=== PATIENT | female | born 1965 | race Caucasian/White ===

== ENCOUNTER 2016-10-08 17:10 | Emergency (ER) | payer BC ==
[2016-10-08 17:30] VITALS: BP 162/99
[2016-10-08] MEDS ORDERED: Haloperidol Lactate 5 MG/ML SDV IM ONE (17:45)
[2016-10-08] MEDS ORDERED: Ketorolac 30 MG/ML SDV IM ONE (17:45)
[2016-10-08] MEDS ORDERED: Ondansetron 4 MG Tab.DIS PO ONE (17:45)
[2016-10-08] MEDS ORDERED: diphenhydrAMINE 50 MG/ML SDV IM ONE (17:45)
--- NOTE | 2016-10-08 17:58 | EDM.PDOC ---
ED HPI GENERAL MEDICAL PROBLEM - General Chief Complaint: Headache Stated Complaint: MIGRAINE Time Seen by Provider: 10/08/16 17:36 Source of Information: Reports: Patient History Limitations: Reports: No Limitations - History of Present Illness INITIAL COMMENTS - FREE TEXT/NARRATIVE: Patient is a 51 y/o female who presents to the E.D. complaining of left sided headache behind the left eye with photosensitivity. States the headache started today while in a meeting. Has been under a lot of stress lately at work. States she is almost positive this is the culprit. States pattern is different then usual. States normally headache is located to the right side of her head with light sensitivity and nausea. States recent onset of headache is located to the left side of her head. In addition she has been awoken in the middle of the night with headaches. States this is abnormal but is not to concerned. States she has been trying to lose weight and has noted decrease in weight by 15 lbs since Feb 14. States normally the headache is resolved with taking excedrin but states she has not been able to take it due to being excessively busy. 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 Denies fever, chills, vomiting, n/t, gait disturbances, worst headache of her life, stiff neck, recent head trauma, or any additional concerns. Onset: Gradual Duration: Constant, Waxing/Waning Location: Reports: Head. Denies: Neck, Back Quality: Reports: Ache, Throbbing Severity: Moderate Improves with: Reports: None Worsens with: Reports: None Context: Reports: Other (stress) Associated Symptoms: Reports: No Other Symptoms, Nausea/Vomiting (nauseated) Treatments [employer]: Reports: Other (see below) (none stated) Left Headache Pain Score (Numeric/FACES): 10 - Related Data Allergies Allergy/AdvReac Type Severity Reaction Status Date / Time NSAIDS (Non-Steroidal Allergy Severe unknown Verified 06/15/16 14:54 Anti-Inflamma Sulfa (Sulfonamide Allergy Severe unknown Verified 06/15/16 14:54 Antibiotics) amoxicillin trihydrate Allergy Intermediate unknown Verified 06/15/16 14:54 [From Augmentin] droperidol [From Inapsine] Allergy Intermediate unknown Verified 06/15/16 14:54 fluconazole [From Diflucan] Allergy Intermediate unknown Verified 06/15/16 14:54 potassium clavulanate Allergy Intermediate unknown Verified 06/15/16 14:54 [From Augmentin] Home Meds: Home Meds Calcium Carbonate/Vitamin D3 [Caltrate 600 + D Soft Chew Tab] 1 each PO DAILY [History] Cetirizine [ZyrTEC] 10 mg PO DAILY PRN 11/10/13 [History] Cholecalciferol (Vitamin D3) [Vitamin D3] 5,000 unit PO DAILY 11/10/13 [History] Cyanocobalamin/FA/Pyridoxine [Folbic Tablet] 1 tab PO DAILY 11/10/13 [History] Hydrochlorothiazide 12.5 mg PO DAILY 11/10/13 [History] LORazepam [Ativan] 1 mg PO BEDTIME 11/10/13 [History] Omeprazole 40 mg PO BID PRN 11/10/13 [History] Potassium Chloride [Klor-Con 10] 10 meq PO DAILY 11/10/13 [History] Solifenacin [Vesicare] 10 mg PO DAILY 11/10/13 [History] Triamcinolone Acetonide [Nasacort AQ [place]] 2 spray DANIAL DAILY 11/10/13 [History] Multivitamin [Multivitamins] 1 each PO DAILY 06/15/16 [History] Nortriptyline HCl [Pamelor] 50 mg PO BEDTIME 06/15/16 [History] Past Medical History - Past Surgical History HEENT Surgical History: Reports: Naso-Sinus Surgery GI Surgical History: Reports: Bariatric Procedure, Cholecystectomy Neurological Surgical History: Reports: Spinal Fusion Social & Family History - Tobacco Use Smoking Status *Q: Never Smoker - Caffeine Use Caffeine Use: Reports: Soda - Recreational Drug Use Recreational Drug Use: No ED ROS GENERAL - Review of Systems Review Of Systems: See Below Constitutional: Denies: Fever, Chills, Malaise, Weakness, Fatigue, Decreased Appetite HEENT: Denies: Vision Change Respiratory: Denies: Shortness of Breath, Cough, Sputum Cardiovascular: Denies: Chest Pain, Dyspnea on Exertion GI/Abdominal: Reports: Nausea. Denies: Abdominal Pain, Constipation, Diarrhea, Vomiting : Reports: No Symptoms Musculoskeletal: Denies: Neck Pain, Back Pain Neurological: Reports: Headache. Denies: Dizziness, Numbness, Syncope, Tingling , Difficulty Walking, Weakness - Physical Exam Exam: See Below Exam Limited By: No Limitations General Appearance: Alert, WD/WN, No Apparent Distress Eye Exam: Bilateral Eye: EOMI, Nystagmus (none present on examination), PERRL Ears: Normal External Exam, Hearing Grossly Normal Nose: Normal Inspection Throat/Mouth: Normal Inspection, Normal Oropharynx, Normal Voice, No Airway Compromise Head Exam: Atraumatic, Normocephalic Neck: Normal Inspection, Supple, Non-Tender, Full Range of Motion. No: Lymphadenopathy (L), Lymphadenopathy (R) Respiratory/Chest: No Respiratory Distress, Lungs Clear, Normal Breath Sounds, No Accessory Muscle Use, Chest Non-Tender Cardiovascular: Normal Peripheral Pulses, Regular Rate, Rhythm, No Murmur GI/Abdominal: Normal Bowel Sounds, Soft, Non-Tender, No Organomegaly, No Distention Neuro Exam (Abbreviated): Alert, Oriented, CN II-XII Intact, Normal Cognition, Normal Gait, No Motor/Sensory Deficits, Other (Cerebellar fx intact. Strenght5/ 5 upper/lower extremities. ) Back Exam: Normal Inspection Extremities: Normal Inspection, Non-Tender, No Pedal Edema, Normal Capillary Refill Psychiatric: Normal Affect, Normal Mood Skin Exam: Warm, Dry, Intact, Normal Color Course - Vital Signs Last Recorded V/S: Last Vital Signs Temp 98.7 F 10/08/16 17:28 Pulse 81 10/08/16 17:28 Resp 20 10/08/16 17:28 BP 162/99 H 10/08/16 17:28 Pulse Ox 99 10/08/16 17:28 - Orders/Labs/Meds Meds: Medications Discontinued Medications Generic Name Dose Route Start Last Admin Trade Name Roque PRN Reason Stop Dose Admin Diphenhydramine HCl 50 mg 10/08/16 17:45 10/08/16 18:07 Benadryl IM 10/08/16 17:46 50 mg ONETIME ONE Administration Haloperidol Lactate 5 mg 10/08/16 17:45 10/08/16 18:05 Haldol IM 10/08/16 17:46 5 mg ONETIME ONE Administration Ketorolac Tromethamine 15 mg 10/08/16 17:45 10/08/16 18:02 Toradol IM 10/08/16 17:46 15 mg ONETIME ONE Administration Ondansetron HCl 4 mg 10/08/16 17:45 10/08/16 18:02 Zofran Odt PO 10/08/16 17:46 4 mg ONETIME ONE Administration - Re-Assessments/Exams Free Text/Narrative Re-Assessment/Exam: Patient states headache is caused by increased stress that has been present at work. States she is almost positive this is the culprit. States pattern is different then usual. States normally headache is located to the right side of her head with light sensitivity and nausea. States recent onset of headache is located to the left side of her head. In addition she has been awoken in the middle of the night with headaches. States this is abnormal but is not to concerned. States she has been trying to lose weight and has noted decrease in weight by 15 lbs since Feb 14. States normally the headache is resolved with taking excedrin but states she has not been able to take it due to being excessively busy. I offered to obtain CT of the head to evaluate for any abnormalities. She has opted to receive medications only and will see PCP to have further studies if required. Ordered haldol 5mg IM, benadryl 50mg IM, zofran 4mg ODT, and toradol 15mg IM. She has history of gastric sleeve and normally does not take nsaids. States she has had toradol in the past with no issues. 10/08/16 18:34 Reassessment, Headache is improving. Patient is ready to be discharged home. Son will be driving her home. Departure - Departure Time of Disposition: 18:35 Disposition: Home, Self-Care 01 Condition: good Clinical Impression: Migraine - Discharge Information Referrals: Aleyda Weber MD [Primary Care Provider] - Forms: ED Department Discharge Additional Instructions: No driving this evening since receiving a sedative medications. Suggest going home finding a dark room with no distractions allowing undisturbed rest. See your PCP this coming week if headaches continue. Return to the E.D. if you develop fever/chills, vomiting, vision changes, stiff neck, or any additional neuro symptoms. Take your excedrin as usual for migraines.
== END 2016-10-08 18:48 | disposition home or self-care (01) ==
LOC: JD.ED 17:10
DX: G43.909 Migraine, unspecified, not intractable, without status migrainosus (principal); Z98.84 Bariatric surgery status; Z90.49 Acquired absence of other specified parts of digestive tract; Z98.1 Arthrodesis status; Z79.899 Other long term (current) drug therapy; Z88.1 Allergy status to other antibiotic agents; Z88.2 Allergy status to sulfonamides; Z88.8 Allergy status to other drugs, medicaments and biological substances
CPT/HCPCS: 96372; 99283; A9270; J1200; J1630; J1885

== ENCOUNTER 2017-05-08 19:53 | Emergency (ER) | payer BC ==
--- NOTE | 2017-05-08 20:02 | EDM.PDOC ---
ED HPI GENERAL MEDICAL PROBLEM - General Chief Complaint: Cardiovascular Problem Stated Complaint: HIGH BLOOD PRESSURE Time Seen by Provider: 05/08/17 20:02 - History of Present Illness INITIAL COMMENTS - FREE TEXT/NARRATIVE: 3-year-old female presents emergency room blood pressure problems. Patient's had elevations in her blood pressure over the last month or month and a half. They have concerns about contributing medications she started on estradiol 10 mg about 01 April but her blood pressure was originally noted be going up at that point. She has been started on raloxifene has had this increased from 37.5 mg to 75 mg a day seems to be doing okay blood pressure is gone up some it's unclear if this is been contributing to this patient was started on Zanaflex about a week ago. Patient's been taking lorazepam at night and his stopped doing this. She's had systolic blood pressures in the 160s and 170s lately. Her only antihypertensive medication is hydrochlorothiazide 25 mg daily. She has not had a tremor or elevated temperatures she does have daily headaches this is not new for her. She does not have anything that sounds like clonus. Headache Pain Score (Numeric/FACES): 3 - Related Data Allergies Allergy/AdvReac Type Severity Reaction Status Date / Time NSAIDS (Non-Steroidal Allergy Severe unknown Verified 06/15/16 14:54 Anti-Inflamma Sulfa (Sulfonamide Allergy Severe unknown Verified 06/15/16 14:54 Antibiotics) amoxicillin trihydrate Allergy Intermediate unknown Verified 06/15/16 14:54 [From Augmentin] droperidol [From Inapsine] Allergy Intermediate unknown Verified 06/15/16 14:54 fluconazole [From Diflucan] Allergy Intermediate unknown Verified 06/15/16 14:54 potassium clavulanate Allergy Intermediate unknown Verified 06/15/16 14:54 [From Augmentin] Home Meds: Home Meds Calcium Carbonate/Vitamin D3 [Caltrate 600 + D Soft Chew Tab] 1 each PO DAILY [History] Cetirizine [ZyrTEC] 10 mg PO DAILY PRN 11/10/13 [History] Cholecalciferol (Vitamin D3) [Vitamin D3] 5,000 unit PO DAILY 11/10/13 [History] Cyanocobalamin/FA/Pyridoxine [Folbic Tablet] 1 tab PO DAILY 11/10/13 [History] Hydrochlorothiazide 12.5 mg PO DAILY 11/10/13 [History] LORazepam [Ativan] 1 mg PO BEDTIME 11/10/13 [History] Omeprazole 40 mg PO BID PRN 11/10/13 [History] Potassium Chloride [Klor-Con 10] 10 meq PO DAILY 11/10/13 [History] Solifenacin [Vesicare] 10 mg PO DAILY 11/10/13 [History] Triamcinolone Acetonide [Nasacort AQ [place]] 2 spray DANIAL DAILY 11/10/13 [History] Multivitamin [Multivitamins] 1 each PO DAILY 06/15/16 [History] Nortriptyline HCl [Pamelor] 50 mg PO BEDTIME 06/15/16 [History] amLODIPine [Norvasc] 2.5 mg PO DAILY #15 tablet 05/08/17 [Rx] Past Medical History - Past Surgical History HEENT Surgical History: Reports: Naso-Sinus Surgery GI Surgical History: Reports: Bariatric Procedure, Cholecystectomy Neurological Surgical History: Reports: Spinal Fusion Social & Family History - Tobacco Use Smoking Status *Q: Never Smoker - Caffeine Use Caffeine Use: Reports: Soda - Recreational Drug Use Recreational Drug Use: No ED ROS GENERAL - Review of Systems Review Of Systems: See Below Constitutional: Reports: No Symptoms HEENT: Reports: No Symptoms Respiratory: Reports: No Symptoms Cardiovascular: Reports: Blood Pressure Problem. Denies: No Symptoms Endocrine: Denies: No Symptoms GI/Abdominal: Denies: No Symptoms : Denies: No Symptoms Musculoskeletal: Denies: No Symptoms Skin: Denies: No Symptoms Neurological: Denies: No Symptoms ED EXAM, GENERAL - Physical Exam Exam: See Below Exam Limited By: No Limitations General Appearance: Alert, No Apparent Distress Head: Atraumatic Neck: Normal Inspection, Supple, Non-Tender, Full Range of Motion Respiratory/Chest: No Respiratory Distress, Lungs Clear, Normal Breath Sounds, No Accessory Muscle Use, Chest Non-Tender Cardiovascular: Normal Peripheral Pulses, Regular Rate, Rhythm, No Edema, No Gallop, No JVD, No Murmur, No Rub GI/Abdominal: Normal Bowel Sounds, Soft, Non-Tender Back Exam: Normal Inspection, Full Range of Motion. No: CVA Tenderness (L), CVA Tenderness (R) Extremities: Normal Inspection, No Pedal Edema Neurological: Other (Deep tendon reflexes are normal no hyperreflexia she has no spontaneous or inducible clonus no tremor.) Skin Exam: Warm, Dry, Intact Lymphatic: No Adenopathy Course - Vital Signs Last Recorded V/S: Last Vital Signs Temp 36.2 C 05/08/17 20:02 Pulse 72 05/08/17 20:02 Resp 20 05/08/17 20:02 BP 162/101 H 05/08/17 20:51 Pulse Ox 99 05/08/17 20:02 - Orders/Labs/Meds Labs: Laboratory Tests 05/08/17 Range/Units 20:44 Sodium 143 (136-145) mEq/L Potassium 3.5 (3.5-5.1) mEq/L Chloride 108 H (98-107) mEq/L Carbon Dioxide 27 (21-32) mEq/L Anion Gap 11.5 (5-15) BUN 23 H (7-18) mg/dL Creatinine 0.9 (0.55-1.02) mg/dL Est Cr Clr Drug Dosing 70.01 mL/min Estimated GFR (MDRD) > 60 (>60) mL/min BUN/Creatinine Ratio 25.6 H (14-18) Glucose 88 (74-106) mg/dL Calcium 9.0 (8.5-10.1) mg/dL Meds: Medications Discontinued Medications Generic Name Dose Route Start Last Admin Trade Name Rudyq PRN Reason Stop Dose Admin Amlodipine Besylate 5 mg 05/08/17 20:44 05/08/17 20:51 Norvasc PO 05/08/17 20:45 5 mg ONETIME ONE Administration - Re-Assessments/Exams Free Text/Narrative Re-Assessment/Exam: 05/08/17 20:53 Patient be started on Norvasc 2.5 mg daily we are waiting a BMP at this time. Consideration was given to serotonin syndrome does not appear to be the case no tremors no akathisia is deep tendon reflexes are normal no clonus spontaneous or inducible no agitation or hyperthermia. The patient said history of reactions to certain blood pressure medications so we will go slowly with dosages. 05/08/17 21:31 Patient continues to do well systolic blood pressures in the 150s diastolic 90- 100 she's received Norvasc basic metabolic panel reviewed her calcium is normal at 9 BUNs is elevated slightly creatinine is good. Departure - Departure Time of Disposition: 21:32 Disposition: Home, Self-Care 01 Clinical Impression: Hypertension Prescriptions: amLODIPine [Norvasc] 2.5 mg PO DAILY #15 tablet Referrals: Aleyda Weber MD [Primary Care Provider] - Forms: ED Department Discharge Additional Instructions: Return to the emergency room with any questions problems worsening symptoms. Increase her daily fluid intake. Continue your hydrochlorothiazide. He was started on amlodipine this is to help lower your blood pressure 2.5 mg daily this is a fairly light dose taking 1 time daily in the evenings. You will need to follow-up with your physician to get this refilled and she may well want to increase the dose of this.
[2017-05-08] MEDS ORDERED: amLODIPine 5 MG Tab PO ONE (20:44)
[2017-05-08 20:52] VITALS: BP 162/101
== END 2017-05-08 21:46 | disposition home or self-care (01) ==
LOC: SUPCPDRO 19:53 → JD.ED 19:53
DX: I10 Essential (primary) hypertension (principal); Z88.2 Allergy status to sulfonamides; Z88.8 Allergy status to other drugs, medicaments and biological substances; Z88.1 Allergy status to other antibiotic agents; Z79.899 Other long term (current) drug therapy
CPT/HCPCS: 36415; 80048; 99283; A9270

== ENCOUNTER 2017-07-16 20:32 | Emergency (ER) | payer BC ==
[2017-07-16 20:42] VITALS: BP 139/81
[2017-07-16] MEDS ORDERED: Sodium Chloride 0.9% 10 ML Syringe FLUSH PRN (21:03)
--- NOTE | 2017-07-16 21:58 | EDM.PDOC ---
ED HPI GENERAL MEDICAL PROBLEM - General Chief Complaint: Cardiovascular Problem Stated Complaint: CHEST TIGHTNESS Time Seen by Provider: 07/16/17 20:45 Source of Information: Reports: Patient History Limitations: Reports: No Limitations - History of Present Illness INITIAL COMMENTS - FREE TEXT/NARRATIVE: Patient is a 52-year-old female who presents to the ED complaining of sinus congestion, runny nose, postnasal drip and anterior chest discomfort with congestion. Patient states symptoms came on over the past couple of days and have worsened as of recent. States hurts to take a deep breath and is breathing shallower secondary to increasing pain with taking a deep breath and also with palpation. States cough is nonproductive. Sinus congestion, runny nose symptoms are minimal. There's been no documented fever, nausea/vomiting, or really any abdominal pain. She's been having some diarrhea as of today approximate 8-10 times. Denies any recent ingestion of any bad or questionable food. Patient also has a history of bilateral leg cramps worse at night secondary to electrolyte abnormalities. She is on potassium supplementation. States approximately 2 weeks ago she drove to [place] and then came back on a plane. She is concerned over the past few nights with worsening leg cramps and onset of chest discomfort and shortness of breath that she may have a blood clot. She has no history of DVT or PE. Patient states father of a blood clot. In addition patient has a history of hypertension on amlodipine and HCTZ. She has a history of gastric bypass and thus is on vitamin B supplementation. She has a history of chronic neck and back discomfort with surgeries and is on lorazepam as needed. She has no history of cancer and does not smoke. She is on no estrogen replacement. Treatments HAT LINER: Reports: Other (see below) Other Treatments HAT LINER: 162 mg aspirin Chest Pain Score (Numeric/FACES): 7 - Related Data Allergies Allergy/AdvReac Type Severity Reaction Status Date / Time NSAIDS (Non-Steroidal Allergy Severe unknown Verified 06/15/16 14:54 Anti-Inflamma Sulfa (Sulfonamide Allergy Severe unknown Verified 06/15/16 14:54 Antibiotics) amoxicillin trihydrate Allergy Intermediate unknown Verified 06/15/16 14:54 [From Augmentin] droperidol [From Inapsine] Allergy Intermediate unknown Verified 06/15/16 14:54 fluconazole [From Diflucan] Allergy Intermediate unknown Verified 06/15/16 14:54 potassium clavulanate Allergy Intermediate unknown Verified 06/15/16 14:54 [From Augmentin] Home Meds: Home Meds Calcium Carbonate/Vitamin D3 [Caltrate 600 + D Soft Chew Tab] 1 each PO DAILY [History] Cetirizine [ZyrTEC] 10 mg PO DAILY PRN 11/10/13 [History] Cholecalciferol (Vitamin D3) [Vitamin D3] 5,000 unit PO DAILY 11/10/13 [History] Cyanocobalamin/FA/Pyridoxine [Folbic] 1 tab PO DAILY 11/10/13 [History] Hydrochlorothiazide 12.5 mg PO DAILY 11/10/13 [History] LORazepam [Ativan] 1 mg PO BEDTIME PRN 11/10/13 [History] Omeprazole 40 mg PO BID PRN 11/10/13 [History] Potassium Chloride [Klor-Con 10] 10 meq PO DAILY 11/10/13 [History] Solifenacin [Vesicare] 10 mg PO DAILY 11/10/13 [History] Triamcinolone Acetonide [Nasacort AQ [place]] 2 spray DANIAL DAILY 11/10/13 [History] Multivitamin [Multivitamins] 1 each PO DAILY 06/15/16 [History] amLODIPine [Norvasc] 2.5 mg PO DAILY #15 tablet 05/08/17 [Rx] Albuterol [Proair HFA] 1 - 2 puff IH Q4H PRN #1 inhaler 07/16/17 [Rx] Prednisone [IMW: predniSONE] 40 mg PO WITHBREAKFAST #8 tab 07/16/17 [Rx] Past Medical History Cardiovascular History: Reports: Hypertension - Past Surgical History HEENT Surgical History: Reports: Naso-Sinus Surgery GI Surgical History: Reports: Bariatric Procedure, Cholecystectomy Neurological Surgical History: Reports: Spinal Fusion Musculoskeletal Surgical History: Reports: Other (See Below) Other Musculoskeletal Surgeries/Procedures:: low back fusion Social & Family History - Tobacco Use Smoking Status *Q: Never Smoker - Caffeine Use Caffeine Use: Reports: None - Recreational Drug Use Recreational Drug Use: No ED ROS GENERAL - Review of Systems Review Of Systems: ROS reveals no pertinent complaints other than HPI. ED EXAM, GENERAL - Physical Exam Exam: See Below Exam Limited By: No Limitations General Appearance: Alert, WD/WN, No Apparent Distress Ears: Hearing Grossly Normal Nose: Normal Inspection Throat/Mouth: Normal Inspection, Normal Oropharynx, Normal Voice, No Airway Compromise Head: Atraumatic, Normocephalic Neck: Normal Inspection, Supple, Non-Tender, Full Range of Motion Respiratory/Chest: No Respiratory Distress, Lungs Clear, Normal Breath Sounds, No Accessory Muscle Use, Other (Pain to the anterior chest with palpation. ) Cardiovascular: Normal Peripheral Pulses, Regular Rate, Rhythm, No Murmur Peripheral Pulses: 4+: Radial (R) GI/Abdominal: Normal Bowel Sounds, Soft, No Organomegaly, No Distention, Tender (mild tenderness to the left upper/lower quadrant.) Back Exam: Normal Inspection Neurological: Alert, Oriented, CN II-XII Intact, Normal Cognition, No Motor/ Sensory Deficits Psychiatric: Normal Affect, Normal Mood Skin Exam: Warm, Dry, Intact, Normal Color Course - Vital Signs Last Recorded V/S: Last Vital Signs Temp 98.6 F 07/16/17 20:41 Pulse 81 07/16/17 20:41 Resp 20 07/16/17 20:41 BP 139/81 07/16/17 20:41 Pulse Ox 100 07/16/17 22:41 - Orders/Labs/Meds Orders: Active Orders 24 hr Category Date Time Status EKG Documentation Completion [RC] STAT Care 07/16/17 21:03 Active Oxygen Therapy [RC] ASDIRECTED Care 07/16/17 21:03 Active Peripheral IV Care [RC] . DIRECTED Care 07/16/17 21:03 Active RT Aerosol Therapy [RC] ASDIRECTED Care 07/16/17 22:27 Active Chest 2V [CR] Stat Exams 07/16/17 21:03 Taken Peripheral IV Insertion Adult [OM.PC] Stat Oth 07/16/17 21:03 Ordered Labs: Laboratory Tests 07/16/17 07/16/17 07/16/17 Range/Units 21:20 21:20 21:20 WBC 4.93 (3.98-10.04) K/mm3 RBC 4.10 (3.98-5.22) M/mm3 Hgb 12.5 (11.2-15.7) gm/L Hct 37.2 (34.1-44.9) % MCV 90.7 (79.4-94.8) fl MCH 30.5 (25.6-32.2) pg MCHC 33.6 (32.2-35.5) g/dl RDW Std Deviation 43.9 (36.4-46.3) fL Plt Count 209 (182-369) K/mm3 MPV 10.8 (9.4-12.3) fl Neutrophils % (Manual) 68 H (40-60) % Band Neutrophils % 1 (0-10) % Lymphocytes % (Manual) 20 (20-40) % Atypical Lymphs % 0 % Monocytes % (Manual) 10 (2-10) % Eosinophils % (Manual) 0 L (0.7-5.8) % Basophils % (Manual) 1 (0.1-1.2) Platelet Estimate Adequate RBC Morph Comment Normal PT 9.9 (8.0-13.0) SECONDS INR 0.93 APTT 25 (22-36) SECONDS D-Dimer, Quantitative 0.28 (0.19-0.59) mg/L Sodium 140 (136-145) mEq/L Potassium 3.7 (3.5-5.1) mEq/L Chloride 107 (98-107) mEq/L Carbon Dioxide 23 (21-32) mEq/L Anion Gap 13.7 (5-15) BUN 31 H (7-18) mg/dL Creatinine 1.2 H (0.55-1.02) mg/dL Est Cr Clr Drug Dosing 51.92 mL/min Estimated GFR (MDRD) 47 (>60) mL/min BUN/Creatinine Ratio 25.8 H (14-18) Glucose 93 (74-106) mg/dL Calcium 8.7 (8.5-10.1) mg/dL Total Bilirubin 0.9 (0.2-1.0) mg/dL AST 28 (15-37) U/L ALT 30 (14-59) U/L Alkaline Phosphatase 118 H (46-116) U/L Troponin I < 0.017 (0.00-0.056) ng/mL NT-Pro-B Natriuret Pep (0-125) pg/mL Total Protein 6.7 (6.4-8.2) g/dl Albumin 3.5 (3.4-5.0) g/dl Globulin 3.2 gm/dL Albumin/Globulin Ratio 1.1 (1-2) /17/18 Range/Units 21:20 WBC (3.98-10.04) K/mm3 RBC (3.98-5.22) M/mm3 Hgb (11.2-15.7) gm/L Hct (34.1-44.9) % MCV (79.4-94.8) fl MCH (25.6-32.2) pg MCHC (32.2-35.5) g/dl RDW Std Deviation (36.4-46.3) fL Plt Count (182-369) K/mm3 MPV (9.4-12.3) fl Neutrophils % (Manual) (40-60) % Band Neutrophils % (0-10) % Lymphocytes % (Manual) (20-40) % Atypical Lymphs % % Monocytes % (Manual) (2-10) % Eosinophils % (Manual) (0.7-5.8) % Basophils % (Manual) (0.1-1.2) Platelet Estimate RBC Morph Comment PT (8.0-13.0) SECONDS INR APTT (22-36) SECONDS D-Dimer, Quantitative (0.19-0.59) mg/L Sodium (136-145) mEq/L Potassium (3.5-5.1) mEq/L Chloride (98-107) mEq/L Carbon Dioxide (21-32) mEq/L Anion Gap (5-15) BUN (7-18) mg/dL Creatinine (0.55-1.02) mg/dL Est Cr Clr Drug Dosing mL/min Estimated GFR (MDRD) (>60) mL/min BUN/Creatinine Ratio (14-18) Glucose (74-106) mg/dL Calcium (8.5-10.1) mg/dL Total Bilirubin (0.2-1.0) mg/dL AST (15-37) U/L ALT (14-59) U/L Alkaline Phosphatase (46-116) U/L Troponin I (0.00-0.056) ng/mL NT-Pro-B Natriuret Pep 38 (0-125) pg/mL Total Protein (6.4-8.2) g/dl Albumin (3.4-5.0) g/dl Globulin gm/dL Albumin/Globulin Ratio (1-2) Meds: Medications Discontinued Medications Generic Name Dose Route Start Last Admin Trade Name Freq PRN Reason Stop Dose Admin Albuterol 2.5 mg 07/16/17 22:27 07/16/17 22:40 Proventil Neb Soln NEB 07/16/17 22:28 2.5 mg ONETIME ONE Administration Prednisone 40 mg 07/16/17 22:28 07/16/17 22:52 Prednisone PO 07/16/17 22:29 40 mg ONETIME ONE Administration Sodium Chloride 10 ml 07/16/17 21:03 07/16/17 21:22 Saline Flush FLUSH 10 ml ASDIRECTED PRN Administration Keep Vein Open - Re-Assessments/Exams Free Text/Narrative Re-Assessment/Exam: IV established. Initial labs and studies include CBC, chem 14, d-dimer, coag studies, troponin, chest x-ray two-view, and EKG. CBC essentially normal. D-dimer 0.28. Creatinine 1.2, troponin less than 0.17, no other concerning findings on chemistry panel. Chest x-ray reviewed with Dr. Pozo with no acute findings. Ordered albuterol neb tx x1 and prednisone 40mg po. Patient has bronchitis. No ABX required. Will discharge patient home with instructions as documented. Departure - Departure Time of Disposition: 22:36 Disposition: Home, Self-Care 01 Condition: Good Clinical Impression: Bronchitis Diarrhea Qualifiers: Diarrhea type: unspecified type Qualified Code(s): R19.7 - Diarrhea, unspecified Prescriptions: Albuterol [Proair HFA] 1 - 2 puff IH Q4H PRN #1 inhaler PRN Reason: Wheezing Prednisone [IMW: predniSONE] 40 mg PO WITHBREAKFAST #8 tab Instructions: Shortness of Breath, Adult, [id number], Metered Dose Inhaler ( No Spacer Used), Acute Bronchitis, Adult Referrals: Aleyda Weber MD [Primary Care Provider] - Forms: ED Department Discharge Additional Instructions: Take prednisone 40mg every a.m. for the next 4 days. Pro Air 1-2 puffs every 4 hrs for shortness of breath, cough, and/or wheezing. Utilize flonase 1 spray twice a day. Afrin 1 spray to each nare twice a day for no longer then 3 days for nasal secretion. Take aleve 1 tab twice a day for pain. Take tylenol 650mg every 4-6 hrs as well for pain. No fruit juices, raw fruits/vegetables, dairy products, and or spicy foods until diarrhea subsides. Followup with PCP this coming week if symptoms persist. Push the fluids. Ensure adequate rest. Return to the E.D. for any new or worsening symptoms. - My Orders Last 24 Hours: My Active Orders 07/16/17 21:03 EKG Documentation Completion [RC] STAT Oxygen Therapy [RC] ASDIRECTED Peripheral IV Care [RC] . DIRECTED Chest 2V [CR] Stat Peripheral IV Insertion Adult [OM.PC] Stat 07/16/17 22:27 RT Aerosol Therapy [RC] ASDIRECTED - Assessment/Plan Last 24 Hours: My Active Orders 07/16/17 21:03 EKG Documentation Completion [RC] STAT Oxygen Therapy [RC] ASDIRECTED Peripheral IV Care [RC] . DIRECTED Chest 2V [CR] Stat Peripheral IV Insertion Adult [OM.PC] Stat 07/16/17 22:27 RT Aerosol Therapy [RC] ASDIRECTED
[2017-07-16] MEDS ORDERED: Albuterol 0.083% 2.5 MG/3 ML Neb Soln NEB ONE (22:27)
[2017-07-16] MEDS ORDERED: predniSONE 20 MG Tab PO ONE (22:28)
--- NOTE | 2017-07-17 16:52 | CR ---
Chest: Two views of the chest were obtained. Comparison: No prior chest x-ray. Heart size and mediastinum are normal. Lungs are clear. Bony structures show minimal disc space narrowing within the thoracic spine. Surgical clips are seen within the left upper abdomen. Impression: 1. Incidental findings. Nothing acute is appreciated on two-view chest x-ray. Diagnostic code #1
== END 2017-07-16 22:58 | disposition home or self-care (01) ==
LOC: JD.ED 20:32
DX: J40 Bronchitis, not specified as acute or chronic (principal); R19.7 Diarrhea, unspecified; I10 Essential (primary) hypertension; Z88.2 Allergy status to sulfonamides; Z88.6 Allergy status to analgesic agent; Z88.1 Allergy status to other antibiotic agents; Z88.8 Allergy status to other drugs, medicaments and biological substances; Z79.899 Other long term (current) drug therapy; Z90.49 Acquired absence of other specified parts of digestive tract
CPT/HCPCS: 36415; 71046; 80053; 83880; 84484; 85025; 85379; 85610; 85730; 93005; 94640; 99284; A9270; J7050; 99283

== ENCOUNTER 2019-08-13 19:54 | Emergency (ER) | payer BC ==
[2019-08-13] MEDS ORDERED: Sodium Chloride 0.9% 10 ML Syringe FLUSH PRN (20:20)
[2019-08-13] MEDS ORDERED: Sodium Chloride 0.9% 1,000 ML IV SCH (20:30)
--- NOTE | 2019-08-13 20:47 | EDM.PDOC ---
ED HPI GENERAL MEDICAL PROBLEM - General Chief Complaint: Abdominal Pain Stated Complaint: ABDOMINAL PAIN Time Seen by Provider: 08/13/19 20:11 Source of Information: Reports: Patient History Limitations: Reports: No Limitations - History of Present Illness INITIAL COMMENTS - FREE TEXT/NARRATIVE: Patient is a 54-year-old female who presents to the emergency department with complaints of left flank and left lower quadrant abdominal pain. She describes the pain as waxing and waning. At baseline it is a 4 out of 10, however when it "spasms "it increases to a 8 or 9 out of 10. She states that the pain initially began on and and was localized to her left flank. She states she went to the chiropractor because she thought her back was out. 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 Patient has a history of bowel obstruction requiring colectomy after her gastric bypass surgery. She has not had any nausea, vomiting, or diarrhea. She did have a normal bowel movement this morning. Patient states she was recently started on an iron and allopurinol for elevated uric acid levels and since that time she has been having irregular bowel movements. She has been passing flatus well. She denies a history of kidney stones. Left Lower Abdomen Pain Score (Numeric/FACES): 8 - Related Data Allergies Allergy/AdvReac Type Severity Reaction Status Date / Time NSAIDS (Non-Steroidal Allergy Severe unknown Verified 08/13/19 20:09 Anti-Inflamma Sulfa (Sulfonamide Allergy Severe unknown Verified 08/13/19 20:09 Antibiotics) amoxicillin trihydrate Allergy Intermediate unknown Verified 08/13/19 20:09 [From Augmentin] droperidol [From Inapsine] Allergy Intermediate unknown Verified 08/13/19 20:09 fluconazole [From Diflucan] Allergy Intermediate unknown Verified 08/13/19 20:09 potassium clavulanate Allergy Intermediate unknown Verified 08/13/19 20:09 [From Augmentin] Home Meds: Home Meds Cetirizine [ZyrTEC] 10 mg PO DAILY PRN 11/10/13 [History] LORazepam [Ativan] 1 mg PO BEDTIME PRN 11/10/13 [History] Omeprazole 40 mg PO BID PRN 11/10/13 [History] Potassium Chloride [Klor-Con 10] 10 meq PO DAILY 11/10/13 [History] Solifenacin [Vesicare] 10 mg PO DAILY 11/10/13 [History] Triamcinolone Acetonide [Nasacort AQ [place]] 2 spray DANIAL DAILY PRN 11/10/13 [ History] hydroCHLOROthiazide [Hydrochlorothiazide] 12.5 mg PO DAILY 11/10/13 [History] Multivitamin [Multivitamins] 1 each PO DAILY 06/15/16 [History] Albuterol [Proair HFA] 1 - 2 puff IH Q4H PRN #1 inhaler 07/16/17 [Rx] Mirabegron [Myrbetriq] 25 mg PO DAILY 03/21/19 [History] amLODIPine [Norvasc] 2.5 mg PO DAILY PRN 03/21/19 [History] Past Medical History Cardiovascular History: Reports: Hypertension Respiratory History: Reports: Asthma Gastrointestinal History: Reports: Bowel Obstruction Psychiatric History: Reports: Anxiety - Past Surgical History HEENT Surgical History: Reports: Naso-Sinus Surgery GI Surgical History: Reports: Bariatric Procedure, Cholecystectomy Neurological Surgical History: Reports: Spinal Fusion Musculoskeletal Surgical History: Reports: Other (See Below) Other Musculoskeletal Surgeries/Procedures:: low back fusion, foot surgery Social & Family History - Family History Family Medical History: Noncontributory - Tobacco Use Smoking Status *Q: Never Smoker Second Hand Smoke Exposure: No - Caffeine Use Caffeine Use: Reports: Coffee, Soda Caffeine Use Comment: rarely - Recreational Drug Use Recreational Drug Use: No ED ROS GENERAL - Review of Systems Review Of Systems: Comprehensive ROS is negative, except as noted in HPI. ED EXAM, GI/ABD - Physical Exam Exam: See Below Exam Limited By: No Limitations General Appearance: Alert, WD/WN, No Apparent Distress Respiratory/Chest: No Respiratory Distress, Lungs Clear, Normal Breath Sounds, No Accessory Muscle Use, Chest Non-Tender Cardiovascular: Normal Peripheral Pulses, Regular Rate, Rhythm, No Edema, No Gallop, No JVD, No Murmur, No Rub GI/Abdominal Exam: Normal Bowel Sounds, Soft, No Organomegaly, No Distention, No Abnormal Bruit, No Mass, Pelvis Stable, Tender (Left upper, left lateral, and left lower quadrant). No: Distended, Guarding, Rigid Neurological: Alert, Oriented, CN II-XII Intact, Normal Cognition, Normal Gait, Normal Reflexes, No Motor/Sensory Deficits Psychiatric: Normal Affect, Normal Mood Skin Exam: Warm, Dry, Intact, Normal Color, No Rash Course - Vital Signs Last Recorded V/S: Last Vital Signs Temp 98.8 F 08/13/19 20:03 Pulse 75 08/13/19 20:03 Resp 20 08/13/19 20:03 BP 157/102 H 08/13/19 20:03 Pulse Ox 100 08/13/19 20:03 - Orders/Labs/Meds Orders: Active Orders 24 hr Category Date Time Status Peripheral IV Care [RC] . DIRECTED Care 08/13/19 20:20 Active Abdomen 2V AP Flat Upright [CR] Stat Exams 08/13/19 21:25 Stop Req Abdomen Pelvis wo Cont [CT] Stat Exams 08/13/19 21:46 Taken Sodium Chloride 0.9% [Normal Saline] 1,000 ml Med 08/13/19 20:30 Active IV ASDIRECTED Sodium Chloride 0.9% [Saline Flush] Med 08/13/19 20:20 Active 10 ml FLUSH ASDIRECTED PRN Peripheral IV Insertion Adult [OM.PC] Stat Oth 08/13/19 20:20 Ordered Medication Orders Sodium Chloride (Normal Saline) 1,000 mls @ 999 mls/hr IV ASDIRECTED NAYELI Last Admin: 08/13/19 20:44 Dose: 999 mls/hr Sodium Chloride (Saline Flush) 10 ml FLUSH ASDIRECTED PRN PRN Reason: Keep Vein Open Last Admin: 08/13/19 20:38 Dose: 10 ml Labs: Laboratory Tests 08/13/19 08/13/19 08/13/19 Range/Units 20:35 20:35 20:45 WBC 4.47 (3.98-10.04) K/mm3 RBC 4.21 (3.98-5.22) M/mm3 Hgb 12.6 (11.2-15.7) gm/dl Hct 39.1 (34.1-44.9) % MCV 92.9 D (79.4-94.8) fl MCH 29.9 (25.6-32.2) pg MCHC 32.2 (32.2-35.5) g/dl RDW Std Deviation 46.5 H (36.4-46.3) fL Plt Count 217 (182-369) K/mm3 MPV 10.4 (9.4-12.3) fl Neut % (Auto) 50.0 (34.0-71.1) % Lymph % (Auto) 40.9 (19.3-51.7) % [place] % (Auto) 6.9 (4.7-12.5) % Eos % (Auto) 2.0 (0.7-5.8) Baso % (Auto) 0.2 (0.1-1.2) % Neut # (Auto) 2.23 (1.56-6.13) K/mm3 Lymph # (Auto) 1.83 (1.18-3.74) K/mm3 Moore # (Auto) 0.31 (0.24-0.36) K/mm3 Eos # (Auto) 0.09 (0.04-0.36) K/mm3 Baso # (Auto) 0.01 (0.01-0.08) K/mm3 Sodium 137 (136-145) mEq/L Potassium 3.7 (3.5-5.1) mEq/L Chloride 102 (98-107) mEq/L Carbon Dioxide 28 (21-32) mEq/L Anion Gap 10.7 (5-15) BUN 16 (7-18) mg/dL Creatinine 1.0 (0.55-1.02) mg/dL Est Cr Clr Drug Dosing 62.09 mL/min Estimated GFR (MDRD) 58 (>60) mL/min BUN/Creatinine Ratio 16.0 (14-18) Glucose 98 (74-106) mg/dL Calcium 8.8 (8.5-10.1) mg/dL Total Bilirubin 1.1 H (0.2-1.0) mg/dL AST 33 (15-37) U/L ALT 35 (14-59) U/L Alkaline Phosphatase 133 H (46-116) U/L C-Reactive Protein <0.2 (<1.0) mg/dL Total Protein 6.7 (6.4-8.2) g/dl Albumin 3.4 (3.4-5.0) g/dl Globulin 3.3 gm/dL Albumin/Globulin Ratio 1.0 (1-2) Lipase 120 (73-393) U/L Urine Color Yellow (Yellow) Urine Appearance Clear (Clear) Urine pH 7.0 (5.0-8.0) Ur Specific [place] 1.025 (1.005-1.030) Urine Protein Negative (Negative) Urine Glucose (UA) Negative (Negative) Urine Ketones Negative (Negative) Urine Occult Blood Negative (Negative) Urine Nitrite Negative (Negative) Urine Bilirubin Negative (Negative) Urine Urobilinogen 0.2 (0.2-1.0) Ur Leukocyte Esterase 1+ H (Negative) Urine RBC 0-5 (0-5) /hpf Urine WBC 0-5 (0-5) /hpf Ur Squamous Epith Cells 5-10 H (0-5) /hpf Urine Bacteria Few (FEW) /hpf Urine Mucus Few (FEW) /hpf Meds: Medications Generic Name Dose Route Start Last Admin Trade Name Freq PRN Reason Stop Dose Admin Sodium Chloride 1,000 mls @ 999 mls/hr 08/13/19 20:30 08/13/19 20:44 Normal Saline IV 999 mls/hr ASDIRECTED NAYELI Administration Sodium Chloride 10 ml 08/13/19 20:20 08/13/19 20:38 Saline Flush FLUSH 10 ml ASDIRECTED PRN Administration Keep Vein Open Discontinued Medications Generic Name Dose Route Start Last Admin Trade Name Freq PRN Reason Stop Dose Admin Hydromorphone HCl 0.5 mg 08/13/19 20:50 08/13/19 21:02 Dilaudid IVPUSH 08/13/19 20:51 0.5 mg ONETIME ONE Administration Ondansetron HCl 4 mg 08/13/19 20:50 08/13/19 21:02 Zofran IVPUSH 08/13/19 20:51 4 mg ONETIME ONE Administration - Re-Assessments/Exams Free Text/Narrative Re-Assessment/Exam: 08/13/19 22:41 Patient's hematology and urinalysis was grossly unremarkable. CT scan of the abdomen pelvis did not show a kidney stone, however did show an air-filled colon consistent with abdominal bloating as well as constipation. Discussed these findings with the patient. She has been recently started on iron which could be contributing to her constipation. We will send her home with a bottle of magnesium citrate recommend that she take that this evening. I will give her a note off from work for tomorrow. Discharge instructions as documented. Departure - Departure Time of Disposition: 22:41 Disposition: Home, Self-Care 01 Condition: Fair Clinical Impression: Abdominal pain - Discharge Information *PRESCRIPTION DRUG MONITORING PROGRAM REVIEWED*: No *COPY OF PRESCRIPTION DRUG MONITORING REPORT IN PATIENT ELIOT: No Instructions: Abdominal Pain, Adult, [id number], Constipation, Adult, Easy-to -Read Referrals: Aleyda Weber MD [Primary Care Provider] - Forms: ED Department Discharge Additional Instructions: You were seen in the emergency department today for left-sided abdominal pain since . Your work-up included blood work, urinalysis, and a CT scan of your abdomen and pelvis. Your blood and urine was found to be normal. CT scan does show that you are constipated. You have been sent home with a bottle of magnesium citrate. Recommend that you drink this when you get home. It will produce a number of bowel movements some of which may be loose. This should , however, improve your symptoms. If you find that after the cleanse you continue to have abdominal pain, we would recommend that you return to be reevaluated. I would also recommend that you start taking a daily stool softener such as Colace. If you find that you continue to be constipated, you may use [id number] MiraLAX as needed. Sepsis Event Note - Evaluation Sepsis Screening Result: No Definite Risk - Focused Exam Vital Signs: Vital Signs Temp Pulse Resp BP Pulse Ox 08/13/19 20:03 98.8 F 75 20 157/102 H 100 Date Exam was Performed: 08/13/19 Time Exam was Performed: 22:39 - My Orders Last 24 Hours: My Active Orders 08/13/19 20:20 Peripheral IV Care [RC] . DIRECTED Sodium Chloride 0.9% [Saline Flush] 10 ml FLUSH ASDIRECTED PRN Peripheral IV Insertion Adult [OM.PC] Stat 08/13/19 20:30 Sodium Chloride 0.9% [Normal Saline] 1,000 ml IV ASDIRECTED 08/13/19 21:25 Abdomen 2V AP Flat Upright [CR] Stat 08/13/19 21:46 Abdomen Pelvis wo Cont [CT] Stat - Assessment/Plan Last 24 Hours: My Active Orders 08/13/19 20:20 Peripheral IV Care [RC] . DIRECTED Sodium Chloride 0.9% [Saline Flush] 10 ml FLUSH ASDIRECTED PRN Peripheral IV Insertion Adult [OM.PC] Stat 08/13/19 20:30 Sodium Chloride 0.9% [Normal Saline] 1,000 ml IV ASDIRECTED 08/13/19 21:25 Abdomen 2V AP Flat Upright [CR] Stat 08/13/19 21:46 Abdomen Pelvis wo Cont [CT] Stat
[2019-08-13] MEDS ORDERED: Ondansetron 4 MG/2 ML SDV IVPUSH ONE (20:50)
[2019-08-13] MEDS ORDERED: HYDROmorphone 0.5 MG/0.5 ML Syringe IVPUSH ONE (20:50)
[2019-08-13] MEDS ORDERED: Magnesium Citrate Solution 296 ML Bottle PO ONE (22:44)
[2019-08-13 22:57] VITALS: BP 134/83; PULSE 68
--- NOTE | 2019-08-14 07:15 | CT ---
CT abdomen and pelvis Technique: Multiple axial sections were obtained from above the dome of the diaphragm inferiorly through the pubic symphysis. Intravenous and oral contrast was not utilized. Comparison: Prior CT abdomen and pelvis exam of 11/10/13. Findings: Visualized lung bases show nothing acute. Liver contains no focal abnormality. Spleen shows no focal abnormality. Prior gastric surgery is noted. Adrenal glands show no nodule. Nonobstructing renal calculi are seen within both kidneys. No ureteral dilatation or ureteral stone is seen. Surgical clips are seen from prior cholecystectomy. Aorta shows no aneurysm. No retroperitoneal adenopathy or mesenteric abnormalities are seen. Appendix is seen which is normal in size. Small amount of free fluid is seen within the cul-de-sac believed to be physiologic. No pelvic mass or adenopathy is seen. Slightly gas dilated loop of sigmoid colon is seen as well as lesser gas and stool within the colon. These findings do not appear obstructive. No small bowel dilatation is seen. Bone window settings were reviewed. Prior lumbar spine surgery is noted at L5-S1 with transpedicle screws and intravertebral disc spacer. Minimal scattered degenerative change is otherwise seen within the spine. Impression: 1. Findings which are believed to be incidental as noted above. 2. Nothing acute is appreciated on noncontrast CT study of the abdomen and pelvis. Diagnostic code #2 This report was dictated in MDT I agree with preliminary report from [facility], finalized on 08/13/19, 11:28 PM Central Daylight Time
== END 2019-08-13 22:55 | disposition home or self-care (01) ==
LOC: JD.ED 19:54
DX: R10.32 Left lower quadrant pain (principal); J45.909 Unspecified asthma, uncomplicated; F41.9 Anxiety disorder, unspecified; Z88.2 Allergy status to sulfonamides; Z88.1 Allergy status to other antibiotic agents; Z88.8 Allergy status to other drugs, medicaments and biological substances; Z79.899 Other long term (current) drug therapy
CPT/HCPCS: 36415; 74176; 80053; 81001; 83690; 85025; 86140; 96361; 96374; 96375; 99284; A9270; J1170; J2405; J7030

== ENCOUNTER 2023-04-11 07:45 | Emergency (ER) | payer BC ==
[2023-04-11 08:45] LABS: BASOPHILS PERCENT AUTO 0.2 % (0.0-1.0); EOSINOPHILS PERCENT AUTO 0.9 % (0.0-6.0); HEMATOCRIT 39.9 % (37.0-47.0); HEMOGLOBIN 13.6 gm/dl (12.0-16.0); IMMATURE GRAN ABSOLUTE AUTO 0.01 K/mm3 (0.00-0.05); IMMATURE GRAN PERCENT AUTO 0.2 % (0.0-0.4); LYMPHOCYTES ABSOLUTE AUTO 1.3 K/mm3 (1.0-4.8); LYMPHOCYTES PERCENT AUTO 29.5 % (24.0-44.0); MEAN CORPUSCULAR HEMOGLOBIN 31.7 pg (28.0-32.0); MEAN CORPUSCULAR HGB CONC 34.1 g/dl (32.0-36.0); MEAN PLATELET VOLUME 10.5 fl (9.4-12.3); MONOCYTES ABSOLUTE AUTO 0.3 K/mm3 (0.0-0.8); MONOCYTES PERCENT AUTO 7.3 % (0.0-8.0); NEUTROPHILS ABSOLUTE AUTO 2.7 K/mm3 (1.8-7.7); NEUTROPHILS PERCENT AUTO 61.9 % (41.0-71.0); PLATELET COUNT,PLT 180 K/mm3 (150-400); RED BLOOD CELL COUNT 4.29 M/mm3 (4.10-5.30); WHITE BLOOD CELL COUNT,WBC 4.38 K/mm3 (3.9-11.3)
[2023-04-11 09:04] LABS: INR 0.94; PROTHROMBIN TIME 10.1 SECONDS (9.7-12.0)
[2023-04-11 09:08] LABS: A/G RATIO 0.9 (1-2); ALBUMIN 3.2 g/dl (3.4-5.0); ANION GAP 13.8 (5-15); CALCIUM 8.8 mg/dL (8.5-10.1); EST CRCL DRUG DOSING (CG) 58.81 mL/min; POTASSIUM,K 3.8 mEq/L (3.5-5.1); PROTEIN TOTAL,TP 6.9 g/dl (6.4-8.2)
[2023-04-11 10:33] VITALS: BP 138/87; PULSE 63
== END 2023-04-11 10:33 | disposition home or self-care (01) ==
LOC: JD.ED 07:45
DX: R07.89 Other chest pain (principal); J45.909 Unspecified asthma, uncomplicated; I10 Essential (primary) hypertension; Z79.899 Other long term (current) drug therapy; Z86.16 Personal history of COVID-19; Z88.0 Allergy status to penicillin; Z88.2 Allergy status to sulfonamides; Z88.8 Allergy status to other drugs, medicaments and biological substances
CPT/HCPCS: 36415; 71045; 71045-26; 80053; 83735; 84484; 85025; 85379; 85610; 93005; 93010; 99284; 99285